=== PATIENT | female | born 1965 | race Caucasian/White ===

== ENCOUNTER 2021-07-14 10:11 | Emergency (ER) | payer BC ==
[2021-07-14 10:38] VITALS: BP 125/72; PULSE 97; TEMP 99.2; BMI 24.2
[2021-07-14] MEDS ORDERED: SODIUM CHLORIDE 1,000 ML IV STA (11:22)
[2021-07-14] MEDS ORDERED: CASIRIVIMAB/IMDEVIMAB 10 ML in SODIUM CHLORIDE 100 ML IVPB ONE (11:32)
== END 2021-07-14 14:32 | disposition home or self-care (01) ==
LOC: JER 10:11
DX: U07.1 COVID-19 (principal)
CPT/HCPCS: 99282-25